=== PATIENT | female | born 1995 | race Caucasian/White ===

== ENCOUNTER 2018-04-08 16:47 | Inpatient (IN) | payer OTHER ==
[~2018-04-08] VITALS: Ht 167.6 cm; Wt 71.2 kg
[2018-04-09] MEDS ORDERED: RINGERS SOLUTION,LACTATED 1,000 ML IV PRN (06:56)
[2018-04-09] MEDS ORDERED: METOCLOPRAMIDE HCL 5 MG/ML 2 ML VIAL IVP PRN (07:00)
[2018-04-09] MEDS ORDERED: FentaNYL CITRATE-PF 100 MCG/2 ML VIAL IVP PRN (07:00)
[2018-04-09] MEDS ORDERED: LIDOCAINE/PF 1% 30 ML VIAL INJ PRN (07:00)
[2018-04-09] MEDS ORDERED: CITRIC ACID/SODIUM CITRATE 30 ML SOLUTION UDCUP PO PRN (07:00)
[2018-04-09 07:44] LABS: BASOPHILS % (AUTO) 0.2 % (0.0-2.0); EOSINOPHILS % (AUTO) 0 % (1.0-6.0); HEMATOCRIT 34.5 % (36-46); HEMOGLOBIN 11.3 g/dL (12.0-16.0); LYMPHOCYTES # (AUTO) 1.6 K/uL (1.0-4.8); LYMPHOCYTES % (AUTO) 12.6 % (22.0-44.0); MEAN CORPUSCULAR HEMOGLOBIN 28.3 pg (26.0-34.0); MEAN CORPUSCULAR HGB CONC 32.9 G/dL (31.0-37.0); MEAN CORPUSCULAR VOLUME 86 fL (80-100); MONOCYTES # (AUTO) 0.8 K/uL (0.1-1.0); NEUTROPHILS # (AUTO) 10.4 K/uL (1.8-7.7); NEUTROPHILS % (AUTO) 81.2 % (40.0-70.0); PLATELET COUNT (AUTO)-OB 248 K/uL (150-450)
[2018-04-09] MEDS: RINGERS SOLUTION,LACTATED 1,000 ML IV SCH ×2 (07:45→11:17)
[2018-04-09] MEDS ORDERED: PREN1TAB80 PO (08:33)
[2018-04-09] MEDS ORDERED: FERR143T PO (08:37)
[2018-04-09] MEDS ORDERED: ROPIVACAINE HCL/PF 0.2% 100 ML ED ONE (09:31)
[2018-04-09] MEDS ORDERED: ONDANSETRON HCL 4 MG/2 ML VIAL IVP PRN (10:00)
[2018-04-09] MEDS ORDERED: ROPIVACAINE HCL/PF 0.2% 100 ML ED PRN (10:00)
[2018-04-09] MEDS ORDERED: DiphenhydrAMINE HCL 50 MG/ML VIAL IVP PRN (10:00)
[2018-04-09] MEDS ORDERED: OXYTOCIN 30 UNITS/LACT RINGERS 500 ML IV PRN (10:59)
[2018-04-09] MEDS ORDERED: OXYTOCIN 30 UNITS/LACT RINGERS 500 ML IV ONE (14:14)
[2018-04-09] MEDS ORDERED: LANOLIN 7 GM OINTMENT TP PRN ×2 (14:15→14:45)
[2018-04-09] MEDS ORDERED: ACETAMINOPHEN/CODEINE 300-30 MG TABLET PO PRN ×4 (14:15→14:45)
[2018-04-09] MEDS ORDERED: BENZOCAINE 20%/MENTHOL 56 GM SPRAY CANISTER TP PRN ×2 (14:15→14:45)
[2018-04-09] MEDS ORDERED: GLYCERIN/WITCH HAZEL LEAF 40 PADS JAR TP PRN ×2 (14:15→14:45)
[2018-04-09] MEDS ORDERED: IBUPROFEN 800 MG TABLET PO SCH (15:00)
[2018-04-09] MEDS ORDERED: CeFAZolin 2 GM/DEXTROSE 50 ML IV ONE (15:15)
[2018-04-09 15:42] VITALS: BP 110/71
[2018-04-09] MEDS ORDERED: PNEUMOCOCCAL VACCINE POLYVALENT 0.5 ML VIAL [PPSV23] IM ONE (20:15)
[2018-04-09] MEDS: MAGNESIUM HYDROXIDE SUSPENSION 30 ML UDCUP PO SCH (20:57)
[2018-04-09] MEDS ORDERED: MAGNESIUM HYDROXIDE SUSPENSION 30 ML UDCUP PO SCH (21:00)
[2018-04-09] MEDS: IBUPROFEN 800 MG TABLET PO SCH (21:17)
[2018-04-10] MEDS: IBUPROFEN 800 MG TABLET PO SCH ×2 (03:17→08:33)
[2018-04-10 04:27] VITALS: BP 105/56
[2018-04-10 06:24] LABS: BASOPHILS % (AUTO) 0.2 % (0.0-2.0); EOSINOPHILS % (AUTO) 0.2 % (1.0-6.0); HEMATOCRIT 26.4 % (36-46); HEMOGLOBIN 8.9 g/dL (12.0-16.0); LYMPHOCYTES # (AUTO) 2.3 K/uL (1.0-4.8); LYMPHOCYTES % (AUTO) 22.9 % (22.0-44.0); MEAN CORPUSCULAR HEMOGLOBIN 29.3 pg (26.0-34.0); MEAN CORPUSCULAR HGB CONC 33.6 G/dL (31.0-37.0); MEAN CORPUSCULAR VOLUME 87 fL (80-100); MONOCYTES % (AUTO) 10.2 % (2.0-9.0); NEUTROPHILS # (AUTO) 6.8 K/uL (1.8-7.7); NEUTROPHILS % (AUTO) 66.5 % (40.0-70.0); PLATELET COUNT (AUTO)-OB 208 K/uL (150-450); RED BLOOD CELL COUNT(AUTO) 3.03 MIL/uL (4.00-5.20)
[2018-04-10] MEDS: MAGNESIUM HYDROXIDE SUSPENSION 30 ML UDCUP PO SCH (08:33)
[2018-04-10] MEDS ORDERED: RINGERS SOLUTION,LACTATED 1,000 ML IV ONE (09:15)
[2018-04-10] MEDS ORDERED: SOD FERRIC GLUC COMPLX/SUCROSE 125 MG in SODIUM CHLORIDE 0.9% 100 ML IV ONE ×2 (09:15→09:30)
[2018-04-10] MEDS ORDERED: ACET-2247 PO (14:12)
[2018-04-10] MEDS ORDERED: IBUP-2070 PO (14:12)
[2018-04-10] MEDS ORDERED: DSS100 PO (14:13)
== END 2018-04-10 14:50 | disposition home or self-care (01) | DRG 807 ==
LOC: 4S 04-09 05:55 → OBSVTOIN 04-09 05:55
PROVIDERS: ADMIT Obstetrics & Gynecology; ATTEND Obstetrics & Gynecology
PROC: 10E0XZZ Delivery of Products of Conception, External Approach (ICD-10-PCS; principal; 2018-04-09)
PROC: 0W8NXZZ Division of Female Perineum, External Approach (ICD-10-PCS; 2018-04-09)
PROC: 3E0R3BZ Introduction of Anesthetic Agent into Spinal Canal, Percutaneous Approach (ICD-10-PCS; 2018-04-09)
PROC: 00HU33Z Insertion of Infusion Device into Spinal Canal, Percutaneous Approach (ICD-10-PCS; 2018-04-09)
PROC: 10907ZC Drainage of Amniotic Fluid, Therapeutic from Products of Conception, Via Natural or Artificial Opening (ICD-10-PCS; 2018-04-09)
DX: O80 Encounter for full-term uncomplicated delivery (principal); Z37.0 Single live birth; Z3A.40 40 weeks gestation of pregnancy
CPT/HCPCS: 85461; 86850; 86870; 86900; 86901; 90686; 90732; J0690; J2590; J2795; J2916; J3490; J7050; J7120